=== PATIENT | female | born 1975 | race Caucasian/White ===

== ENCOUNTER → 2019-10-12 10:27 | Outpatient (BNVA) | payer MEDICAID, SELFPAY | PROVIDERS: Family Provider Nurse Practitioner; PCP Nurse Practitioner Family; Visit Provider Nurse Practitioner Family | DX: M79.671 Pain in right foot (principal) | CPT/HCPCS: 73630 ==

== ENCOUNTER 2020-04-22 09:31 | Outpatient (CLI) | payer BC, MEDICAID, SELFPAY ==
--- NOTE | 2020-04-22 09:36 | MM_ITS ---
WS: [id number] SCREENING DIGITAL MAMMOGRAM WITH CAD HISTORY: SCREENING COMPARISON: None available. Bilateral CC and MLO views submitted. Computer aided detection analyzed. Breast composition: There are scattered areas of fibroglandular density. No suspicious masses, microc alcifications or architectural distortion. MM/[id number] IMPRESSION: BI-RADS: 1-Negative FOLLOW UP: 1 Year Follow-up
== END 2020-04-22 09:32 | disposition home or self-care (01) ==
LOC: RADSHAW 09:34
PROVIDERS: Family Provider Nurse Practitioner; PCP Nurse Practitioner; Visit Provider Nurse Practitioner
DX: Z12.31 Encounter for screening mammogram for malignant neoplasm of breast (principal)
CPT/HCPCS: 77067

== ENCOUNTER → 2022-03-10 18:59 | Outpatient (BNVA) | payer BC, MEDICAID, SELFPAY | PROVIDERS: Family Provider Nurse Practitioner; PCP Nurse Practitioner; Visit Provider Family Medicine | DX: N89.8 Other specified noninflammatory disorders of vagina (principal); A59.9 Trichomoniasis, unspecified; B37.31 Acute candidiasis of vulva and vagina; R39.9 Unspecified symptoms and signs involving the genitourinary system | CPT/HCPCS: 81000; 87491; 87591 ==

== ENCOUNTER 2022-12-26 00:53 | Emergency (ER) | payer BC, MEDICAID, SELFPAY ==
[2022-12-26 01:01] VITALS: BP 141/96; PULSE 75; RESP 16; TEMP 36.8; O2SAT 99; BMI 24.7
[2022-12-26 01:04] VITALS: BP 141/96; PULSE 90; RESP 20; O2SAT 100
--- NOTE | 2022-12-26 01:07 | W.ED.BACK ---
HPI - Back Pain/Injury General: Chief Complaint: Back Pain/Injury Stated Complaint: back pain Time Seen by Provider: 12/26/22 00:53 Source: patient Mode of arrival: ambulatory Limitations: no limitations History of Present Illness: 47-year-old female states that she works at a [employer] been lifting heavy rugs she states that she has had low back pain over the last 2 to 3 days states its paraspinals worse with movement worse with lifting and improved with rest she denies any radiation down her legs denies any bowel or bladder incontinence Associated symptoms: Deny abdominal pain, chills, dysuria, fever(s), nausea or vomiting Review of Systems Const: Denies: fever(s), chills, body aches or change in appetite ENMT: Denies: throat pain or dental pain Card: Denies: chest pain Resp: Denies: dyspnea GI: Denies: abdominal pain, nausea, vomiting or diarrhea : Denies: dysuria Musc: Reports: back pain; Denies: neck pain Skin/Breast: Denies: rash Neuro: Denies: headache(s) PFSH ED PFSH: Medical History Foot pain, right en Sore throat and laryngitis URI with cough and congestion Family History Denies family history of Colon cancer Ovarian cancer Diabetes Heart disease Hypercholesteremia Breast cancer Hypertension Uterine cancer Thyroid disease Stroke Physical Exam Const: COMMON NORMALS: no acute distress and patient oriented x3 HENMT: COMMON NORMALS: normocephalic and atraumatic HEAD & SCALP: normocephalic and atraumatic Chest: COMMONS NORMALS: normal inspection of the chest Resp: COMMON NORMALS: normal respiratory effort Back/Pelvis: OTHER: Tenderness to lumbar spine no midline tenderness no saddle anesthesia Neuro: COMMON NORMALS: patient oriented x3 Psych: COMMON NORMALS: mental status grossly normal Skin: COMMON NORMALS: no rashes or lesions noted GENERAL SKIN EXAM: no rashes or lesions noted Course Vital Signs: Vital signs: Vital Signs Temperature 98.2 F 12/26/22 01:01 Pulse Rate 75 12/26/22 01:01 Respiratory Rate 16 12/26/22 01:01 Blood Pressure 141/96 12/26/22 01:01 Pulse Oximetry 99 12/26/22 01:01 Oxygen Delivery Me thod Room Air 12/26/22 01:01 MDM - Back Pain/Injury Medical Decision Making Patient presents with low back pain is likely a lumbar strain she is well-appearing here no signs of epidural abscess Or cord compression we will prescribe her Naprosyn Robaxin she is to ice and rest she is to follow-up PCP and return if worsening Medical Records I reviewed the patient's medical records. No radiology studies performed this visit Discharge Plan Discharge Patient Disposition: Home Clinical Impression: Strain of lumbar region Condition: Stable Prescriptions: New methocarbamol 750 mg tablet 750 mg PO Q6H PRN (Reason: spasms) Qty: 20 0RF naproxen [Naprosyn] 500 mg tablet 500 mg PO BID PRN (Reason: pain) Qty: 20 0RF No Action rufinamide [Banzel] 200 mg tablet 200 mg PO BID Rx Instructions: give with meal/snack norgestimate-ethinyl estradiol 0.18/0.215/0.25 mg-25 mcg tablet 1 tab PO DAILY Qty: 84 4RF Discharge Orders: Discharge ED (Routine); Ordered 12/26/22 Ordered By: Laverne Post Referrals: Vannessa Carolina FNP [Primary Care Provider] - 1-3 days Discharge Diet: Advance as tolerated Discharge Activity: Resume usual activity Patient Instructions: Low Back Strain (ED) Stand Alone Forms: Work/School Release Coding Level of Care Code ED Lav Crewman for Chad Reed
[2022-12-26] MEDS: ketorolac 60 mg/2 mL INJ IM (01:15)
[2022-12-26 01:35] VITALS: BP 117/77; PULSE 73; RESP 18; O2SAT 100
== END 2022-12-26 01:36 | disposition home or self-care (01) ==
PROVIDERS: Emergency Provider Emergency Medicine; PCP Nurse Practitioner Family
DX: S39.012A Strain of muscle, fascia and tendon of lower back, initial encounter (principal); X50.0XXA Overexertion from strenuous movement or load, initial encounter
CPT/HCPCS: 96372; 99284; J1885